=== PATIENT | male | born 1985 | race Caucasian/White ===

== ENCOUNTER 2023-11-08 22:38 | Emergency (ER) | payer OTHER, SELFPAY ==
[2023-11-08 22:40] VITALS: BP 139/80
--- NOTE | 2023-11-08 23:20 | ED.SKININJ ---
HPI-Injury
General
Chief Complaint: Bite
Time Seen by Provider: 11/08/23 23:10
Travel History
Have you had any contact with someone who has COVID-19?: No
Do you have any symptoms of coronavirus? Fever > 100 degrees, chills, cough, shortness of breath, sore throat, loss of taste or smell, muscle aches, or headache?: No
History of Present Illness-Injury
Initial Injury comments:
HPI: The patient presents after breaking up a dog fight. He chronically has decreased sensation of the right hand but had injury to the distal right ring finger. He noticed laceration at the nail. He states dog was up-to-date on rabies
vaccination and states he has a penicillin allergy.
EXAM:
GENERAL: Well appearing in no distress
HEENT: Moist oral mucosa
NEUROLOGIC: Chronically decreased sensation of the distal right upper extremity
PSYCHIATRIC: Appropriate mental status, normal insight and judgement
EXTREMITIES: There is deformity noted to the distal nail of the right fourth digit, there is also superficial laceration to the nailbed of the right fourth digit with no bony tenderness
SKIN: As above
TIME OF INITIAL ENCOUNTER: 11:15 PM
NUMBER AND COMPLEXITY OF PROBLEMS ADDRESSED AT THE ENCOUNTER
� Chronic conditions affecting care: No significant past medical history other than right upper extremity nerve damage
� Acute Exacerbation and/or Progression of Chronic Illness: This is an acute problem
� Differential Diagnosis includes: Dog bite, potential for infection, nailbed injury
AMOUNT AND/OR COMPLEXITY OF DATA TO BE REVIEWED AND ANALYZED
� I performed an independent evaluation of and my interpretation is:
EKG:
CT:
X-rays:
Laboratory Studies:
Other:
� Review of other/old records: No old records available for review
� Clinical information was obtained by an independent historian: I spoke to significant other at bedside
� Prescriptions/Medications Considered but not given:
� Further testing considered but not performed:
RISK OF COMPLICATIONS AND/OR MORBIDITY OR MORTALITY OF PATIENT MANAGEMENT
� Social determinants of health affecting care: Lives at home
� Discussion with other providers:
� Escalation of care including admission/observation vs risk of discharge considered: I removed a portion of the nail. The wound was cleaned and irrigated. Clindamycin was started (penicillin allergy).
Phy Exam
Physical Exam
Physical Exam:
See HPI
Course
Orders/Labs/Results
Orders:
Orders
11/08/23 23:20
Clindamycin HCl [Cleocin] 300 mg PO NOW STA
Vital Signs
Initial and Last Documented VS:
Initial Vital Signs
Temp Pulse Resp BP Pulse Ox
97.8 F 55 16 139/80 100
11/08/23 22:40 11/08/23 22:40 11/08/23 22:40 11/08/23 22:40 11/08/23 22:40
Last Documented Vital Signs
Temp Pulse Resp BP Pulse Ox
97.8 F 55 16 139/80 100
11/08/23 22:40 11/08/23 22:40 11/08/23 22:40 11/08/23 22:40 11/08/23 22:40
Procedures
Wound Exploration
Right Distal Finger:
Preparation: other (saline)
Findings- Extent of wound is: other (The distal aspect of the nail was angulated and deformed and therefore I removed this portion of the nail as it was embedded into the nailbed)
*Critical Care Note
Total Time (30-74mins, 75-104mins- exclusive of procedures): Not Applicable
ED Attending Note
-
Portions of this chart may have been created with voice recognition software.� Occasional wrong word or��sound alike� substitutions may have occurred due to the inherent limitations of voice recognition software.
Discharge Plan
Departure
Patient Disposition: Home (Routine Discharge)
Date of Disposition: 11/08/23
Time of Disposition: 23:48
Patient with high blood pressure during this ER visit?: Yes
Discharge Problem:
Dog bite
Instructions: Animal Bites (DC)
Prescriptions:
New
clindamycin HCl 150 mg capsule
150 mg PO TID Qty: 9 0RF
Activity Restrictions/Additional Instructions:
I recommend that you change the dressing daily for the next few days. Continue antibiotics over the next several days to help prevent infection. Return here if worse.
[2023-11-08] MEDS: CLEOCIN 300 MG PO (23:41)
== END 2023-11-09 00:15 | disposition home or self-care (01) ==
LOC: EMR 22:38
PROVIDERS: EMERGENCY PHYSICIAN Emergency Medicine; FAMILY PHYSICIAN Nurse Practitioner Family
DX: S61.314A Laceration without foreign body of right ring finger with damage to nail, initial encounter (principal); W54.0XXA Bitten by dog, initial encounter
CPT/HCPCS: 99282; 11750